=== PATIENT | male | born 1945 | race Caucasian/White ===

== ENCOUNTER 2021-01-09 16:27 | Emergency (ER) | payer SELFPAY ==
[2021-01-09 16:29] VITALS: BP 149/85; PULSE 68; RESP 18; TEMP 36.9; O2SAT 97; BMI 25.1
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
[2021-01-09 16:42] VITALS: PULSE 68; O2SAT 97
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
[2021-01-09 17:17] LABS: Basophils # 0.1 10^3/uL (0.0-0.1); Basophils % 0.5 %; Eosinophils # 0.2 10^3/uL (0.0-0.8); Eosinophils % 1.8 %; Hematocrit 37.7 % (42.0-52.0); Hemoglobin 12.8 g/dL (11.7-16.6); Lymphocytes # 1.7 10^3/uL (0.8-4.8); Lymphocytes % 13.7 %; Mean Corpuscular Hemoglobin 32.2 pg (28.0-34.0); Mean Platelet Volume 10.4 fL (7.4-10.4); Monocytes # 1.1 10^3/uL (0.2-0.9); Monocytes % 8.4 %; Neutrophils # 9.35 10^3/uL (1.8-7.7); Neutrophils % 74.5 %; Nucleated Red Blood Cells % 0 %; Platelet Count 164 10^3/cmm (130-400); Red Blood Count 3.97 10^6/uL (4.1-5.3); Red Cell Distribution Width 13.3 % (12.1-15.1); White Blood Count 12.6 10^3/uL (4.0-10.0)
[2021-01-09 17:44] LABS: Alanine Aminotransferase 9 U/L (0-41); Albumin Level 3.6 g/dL (3.5-5.2); Alkaline Phosphatase 58 IU/L (40-130); Anion Gap 11.6 (5-19); Aspartate Amino Transferase 18 U/L (0-40); Blood Urea Nitrogen 13 mg/dL (8-23); Calcium 8.2 mg/dL (8.5-10.5); Carbon Dioxide 22 mmol/L (22-29); Chloride 107 mmol/L (98-107); Creatinine Clr Calc Pharmacy 85.2207; Globulin 2.4 g/dL (1.3-4.6); Glucose 79 mg/dL (65-115); Osmolality Calculated 283 mOsm/kg (285-295); Potassium 3.6 mmol/L (3.5-5.1); Sodium 137 mmol/L (136-145); Total Bilirubin 0.6 mg/dL (0.15-1.2)
[2021-01-09 18:06] VITALS: BP 178/90; PULSE 76; RESP 16; O2SAT 98
[2021-01-09 18:32] VITALS: RESP 16
[2021-01-09] MEDS: ondansetron 2 mg/ML SDV 2 mL 4 MG IVP (18:32)
[2021-01-09] MEDS: morphine 4 mg/mL SDV 1 mL IVP (18:32)
[2021-01-09 18:49] VITALS: BP 151/86; PULSE 62; RESP 16; O2SAT 98
== END 2021-01-09 18:59 | disposition home or self-care (01) ==
PROVIDERS: Family Medicine; Emergency Provider Emergency Medicine
DX: Z04.1 Encounter for examination and observation following transport accident (principal); V89.2XXA Person injured in unspecified motor-vehicle accident, traffic, initial encounter
CPT/HCPCS: 70450; 71045; 72125; 72128; 74176; 80053; 85025; 96374; 96375; 99283; J2270; J2405

== ENCOUNTER 2021-01-22 14:00 | Emergency (ER) | payer SELFPAY ==
[2021-01-22 14:20] VITALS: BMI 25.1
[2021-01-22 14:24] VITALS: BP 128/87; PULSE 95; RESP 16; TEMP 36.4; O2SAT 97
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
== END 2021-01-22 17:53 | disposition home or self-care (01) ==
PROVIDERS: Emergency Provider Nurse Practitioner Family
DX: S22.080A Wedge compression fracture of T11-T12 vertebra, initial encounter for closed fracture (principal); X58.XXXA Exposure to other specified factors, initial encounter; I71.2 Thoracic aortic aneurysm, without rupture
CPT/HCPCS: 72100; 72128; 72131; 99282

== ENCOUNTER → 2021-03-07 11:04 | Outpatient (BNVA) | payer OTHER, SELFPAY | PROVIDERS: Referring Provider Internal Medicine; Visit Provider Orthopaedic Surgery | DX: S22.080A Wedge compression fracture of T11-T12 vertebra, initial encounter for closed fracture (principal); I71.2 Thoracic aortic aneurysm, without rupture; X58.XXXA Exposure to other specified factors, initial encounter | CPT/HCPCS: 72070 ==

== ENCOUNTER 2021-04-03 11:07 | Outpatient (CLI) | payer OTHER, SELFPAY ==
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
--- NOTE | 2021-04-03 13:45 | MR_ITS ---
WS: [id number] MRI CERVICAL SPINE NONCONTRAST TECHNIQUE: Sagittal T1, T2 and STIR imaging. Axial T2, gradient, and fiesta imaging. CLINICAL INFORMATION: M54.2 - Cervicalgia COMPARISON: CT cervical January 09, 2021 FINDINGS: Straightening of the normal cervical lordosis. Moderate spondylitic changes. Cord signal is normal. No high-grade central canal narrowing. C2-C3: Mild left greater than right bony foraminal narrowing. Mild facet arthropathy. C3-C4: Disc osteophyte complex with endplate ridging. Moderate to severe left foraminal narrowing. Mi ld right foraminal narrowing. Mild facet arthropathy. C4-C5: Disc osteophyte complex with endplate ridging. Tiny shallow central protrusion. Slight contact of the cervical cord. Severe left bony foraminal narrowing. Advanced left facet arthropathy. Right f oramen is patent. C5-C6: Disc osteophyte complex with endplate ridging. Mild to moderate and mild right bony foraminal narrowing. Moderate to advanced facet arthropathy asymmetric to the left. C6-C7: Shallow central protrusion C6-7 with mild central canal stenosis and slight contact of the cer vical cord. Severe left foraminal narrowing. Mild right foraminal narrowing. Impingement on the exiti ng left C7 nerve root. C7-T1: Mild disc bulging with osteophytic ridging. Mild left greater than right bony foraminal narrow ing. Spinal canal is patent. Mild bilateral foraminal narrowing T1-T2. Visualized brain stem structures: Normal. Prevertebral soft tissues: Normal. MR/MR cervical spin wo con* [id number] IMPRESSION: 1. Straightening of the normal cervical lordosis. Moderate spondylitic changes . 2. Shallow central protrusion C6-7 with slight contact of the cervical cord an d mild central canal stenosis. 3. Moderate to severe bony foraminal narrowing at left C3-C4, left C4-5, and l eft C6-C7. Impingement on the exiting left C7 nerve root. 4. Mild to moderate left C5-C6 foraminal narrowing. 5. Moderate to advanced facet arthropathy left C3-C4, left C4-C5, and left C5- C6.
== END 2021-04-03 11:08 | disposition home or self-care (01) ==
LOC: RADSHAW 11:10
PROVIDERS: Visit Provider Orthopaedic Surgery
DX: M50.223 Other cervical disc displacement at C6-C7 level (principal); M47.812 Spondylosis without myelopathy or radiculopathy, cervical region; M47.816 Spondylosis without myelopathy or radiculopathy, lumbar region; I71.4 Abdominal aortic aneurysm, without rupture; M51.26 Other intervertebral disc displacement, lumbar region; M48.061 Spinal stenosis, lumbar region without neurogenic claudication; M41.86 Other forms of scoliosis, lumbar region; M51.24 Other intervertebral disc displacement, thoracic region
CPT/HCPCS: 72141; 72146; 72148

== ENCOUNTER 2021-05-01 06:00 | Outpatient (RCR) | payer OTHER, SELFPAY | END 2021-05-20 23:59 | disposition home or self-care (01) | LOC: SPT 06:00 | PROVIDERS: PCP Orthopaedic Surgery; Visit Provider Orthopaedic Surgery | DX: S22.089D Unspecified fracture of T11-T12 vertebra, subsequent encounter for fracture with routine healing (principal); X58.XXXD Exposure to other specified factors, subsequent encounter; M54.2 Cervicalgia; M48.061 Spinal stenosis, lumbar region without neurogenic claudication | CPT/HCPCS: 97110; 97161 ==

== ENCOUNTER 2021-05-21 06:00 | Outpatient (RCR) | payer OTHER, SELFPAY | END 2021-06-20 23:59 | disposition home or self-care (01) | LOC: SPT 06:00 | PROVIDERS: PCP Orthopaedic Surgery; Visit Provider Orthopaedic Surgery | DX: S22.089D Unspecified fracture of T11-T12 vertebra, subsequent encounter for fracture with routine healing (principal); X58.XXXD Exposure to other specified factors, subsequent encounter; M54.2 Cervicalgia; M48.061 Spinal stenosis, lumbar region without neurogenic claudication | CPT/HCPCS: 97110 ==

== ENCOUNTER → 2021-06-06 10:57 | Outpatient (BNVA) | payer OTHER, SELFPAY | PROVIDERS: PCP Orthopaedic Surgery; Visit Provider Orthopaedic Surgery | DX: Z09 Encounter for follow-up examination after completed treatment for conditions other than malignant neoplasm (principal); M54.2 Cervicalgia; M41.84 Other forms of scoliosis, thoracic region | CPT/HCPCS: 72050; 72080 ==

== ENCOUNTER 2021-06-21 06:00 | Outpatient (RCR) | payer OTHER, SELFPAY | END 2021-07-04 23:59 | disposition home or self-care (01) | LOC: SPT 06:00 | PROVIDERS: PCP Orthopaedic Surgery; Visit Provider Orthopaedic Surgery | DX: S22.089D Unspecified fracture of T11-T12 vertebra, subsequent encounter for fracture with routine healing (principal); X58.XXXD Exposure to other specified factors, subsequent encounter; M54.2 Cervicalgia; M48.061 Spinal stenosis, lumbar region without neurogenic claudication | CPT/HCPCS: 97110 ==

== ENCOUNTER 2022-01-17 10:23 | Outpatient (CLI) | payer OTHER, SELFPAY ==
--- NOTE | 2022-01-17 | CT_ITS ---
WS: [id number] CT CHEST TECHNIQUE: Noncontrast CT of the chest with coronal and sagittal reformatted images. CLINICAL INFORMATION: YVONNE NODULE COMPARISON: DLP: 711.[address] scans at [facility] use at least one of these dose optimization techniques: automated e xposure control; mA and/or kV adjustment per patient size (includes targeted exams where dose is matc hed to clinical indication); or iterative reconstruction. FINDINGS: Moderate chronic emphysematous changes. No acute pulmonary infiltrates. No focal pneumonia or pleural fluid. Slight subsegmental atelectasis in the lung bases. Small 6 mm hazy subpleural nodule RIGHT up per lobe. A few subcentimeter subpleural nodules in the LEFT lower lobe measuring 4 to 5 mm. LEFT upp er lobe nodule anteriorly measuring 5 mm. Ectatic ascending thoracic aorta measuring 3.8CM with noncalcified lobulated atheromatous plaque in t he aortic arch similar in appearance to the prior examinations. No mediastinal or hilar lymphadenopathy. Coronary calcification. No axillary lymphadenopathy. Adrenal glands are normal. Normal GE junction. No axillary lymphadenopathy. Thoracic scoliosis convex LEFT. Chronic compression of the T12 vertebral body superior endplate appea rs unchanged since the MRI March 2021. Disc space narrowing with vacuum disc phenomenon lower thora cic spine. CT/CT chest wo con [id number] IMPRESSION: 1. A few subcentimeter pulmonary nodules described above the largest measuring 5 to 6 mm subpleural RIGHT upper lobe. Recommend [address] follow-up. 2. Ectatic ascending thoracic aorta measuring 3.8 with noncalcified lobulated atheromatous plaque in the aortic arch similar in appearance to the prior exami nations. 3. Coronary calcification. 4. No mediastinal or hilar lymphadenopathy. No axillary lymphadenopathy. 5. Thoracic curve convex LEFT. Chronic anterior wedging with mild compression superior endplate T12 is unchanged from prior MRI March 2021.
== END 2022-01-17 10:24 | disposition home or self-care (01) ==
LOC: RAD 10:25
PROVIDERS: PCP Internal Medicine; Visit Provider Internal Medicine
DX: R91.1 Solitary pulmonary nodule (principal); R91.8 Other nonspecific abnormal finding of lung field; I25.10 Atherosclerotic heart disease of native coronary artery without angina pectoris
CPT/HCPCS: 71250

== ENCOUNTER 2022-03-10 12:14 | Inpatient (IN) | payer OTHER, SELFPAY ==
[2022-03-10 12:31] VITALS: BP 91/71; PULSE 107; RESP 16; TEMP 36.4; O2SAT 98
[2022-03-10 12:35] VITALS: BP 91/71; PULSE 104; RESP 24; O2SAT 99
--- NOTE | 2022-03-10 12:49 | XACV_ITS ---
Exam Room: [facility] Ht: 175 cm Wt: 77 kg BSA: 1.95 m2 Gender: Male : 1945 Any Known Allergies: No known allergies Exam Priority: Routine Indication(s): - Cardiogenic shock Procedure(s): Procedure Description: Diagnostic procedure Procedure Description: PCI procedure Procedure Description: Coronary IVUS Procedure Description: Drug Eluting Coronary Stent Procedure Description: PTCA Procedure Description: Miscellaneous Procedure Description: ACT Procedure Description: Coronary Angiography Procedure Description: pVAD Diagnostic Cath Status: Emergency Diagnostic Findings * INDICATION:76 year old male with no significant prior cardiac history, presented to the hospital with a 3 to 4 days of on and off chest pain, wrist pain, arm pain. He also complained of abdominal pain. He had multiple syncopal episodes in the last 1 to 2 days. Patient also described nausea and vomiting associated with the pain. In the emergency room he was found to have ischemic EKG however not meeting STEMI criteria. Patient was also found to be cardiogenic shock. Patient was emergently taken to agriculture laborer. . * Left Main: ostial significant 80% stenosis, SAVANNA: 3 flow. * Proximal Right Coronary Artery: subtotal occlusion. Patient has developed left to right collateral blood flow. * Circumflex has no significant disease. * Proximal Left Anterior Descending: critical 95% stenosis, SAVANNA: 3 flow. * Coronary angiography shows right dominance. PCI Status: Emergency PCI Indication: NSTE - ACS Interventional Findings * Procedure detail: * Patient was in cardiogenic shock. On diagnostic imaging, patient was found to have severe * multivessel disease including ostial left main artery: Severe proximal LAD stenosis and subtotal occlusion of RCA with collateral blood supply from left system. We proceeded with Impella assisted high risk PCI of left main and LAD arteries after discussion with CT surgical team. Impella CP was placed. Engagement of arteries with guide catheter was extremely difficult because of dilated and tortuous vessels and off axis takeoff. After attempting to engage left main with several guides, we were able to direct the guidewire into LAD without engagement through XB 3.0 guide with the sideholes. We performed balloon angioplasty of LAD and left main artery with 2.5 x 12 mm semicompliant balloon. This was followed by balloon angioplasty of left main artery with 3.0 x 8 mm semicompliant balloon. With then placed a 3.0 x 18 mm resolute Jagruti drug-eluting stent in LAD. A second stent was placed proximally measuring 3.0 x 15 mm. We then proceeded with PCI of ostial left main with 4.0 x 12 mm resolute Jagruti drug-eluting stent. This was postdilated with 4.5 x 8 mm NC balloon. Same balloon was used to post dilate the proximal part of the LAD stent. At this time final angiogram was performed. It was suboptimal angiogram given nonselective engagement of left main artery and guide with sideholes. We then confirmed appropriate expansion of the stents with IVUS. At this time guidewire and guide catheter were removed. Patient left the Capping Machine Operator in a stable condition. * Left Main: 80% stenosis treated with a AB TREK 2.50X12 RX BALLOON, AB TREK 3.00X08 RX BALLOON, and MDT Ruba JAGRUTI 4.0X12 SANDRA. 0% residual stenosis, SAVANNA: 3 flow. * Proximal Left Anterior Descendin% stenosis treated with a AB TREK 2.50X12 RX BALLOON, MDT R JAGRUTI 3.0X18 SANDRA, RIGOBERTO R JAGRUTI 3.0X15 SANDRA, and MDMiguel BROWN EUPHORA RX 4.19Z23WX BALLOON. 0% residual stenosis, SAVANNA: 3 flow. Conclusions 1. Patient is in cardiogenic shock and has presented with 2. non-ST elevation IN 3. and multivessel CAD. S/p impella assisted successful revascularization of 4. ostial left main and 5. proximal LAD. 6. Left Main was treated with a Balloon, Balloon, and Drug Eluting Stent. 7. Proximal Left Anterior Descending was treated with a Balloon, Drug Eluting Stent, Drug Eluting Stent, and Balloon. Recommendations * Transfer to ICU. We will keep Impella in. * Continue dual antiplatelet therapy for at least 1 year. * Patient's condition is critical and will need close monitoring. If becomes significantly hypotensive, will decision and up titration of pressors.. * Order echocardiogram. Interventional RX Recommendation: PCI w/o planned CABG Diagnostic RX Recommendation: PCI w/o planned CABG Anticoagulation: Heparin Pressures Phase:Rest AO : 84 / 70 ( 78 ) @ 1:30:00 PM 111 / 92 ( 99 ) @ 2:20:00 PM 117 / 109 ( 111 ) @ 2:43:00 PM 119 / 114 ( 116 ) @ 3:00:00 PM 105 / 95 ( 96 ) @ 3:43:00 PM LV : 109 / -8 / 34 @ 2:08:00 PM Clinical Evaluation EBL: 5mL-10mL Procedural Details Procedure Consent Obtained. Admit Source: Emergency department. Pre-Procedure Time Out. Identified patient by full name and date of as verbalized by the patient/guarantor. Does the consent match the physician's order: N/A Emergent; Informed Consent not obtained due to time critical life threat. Accurate & Complete Informed Consent: N/A Emergent; Informed Consent not obtained due to time critical life threat. Inpatient/Outpatient History & Physical on Chart: N/A Emergent; Informed Consent not obtained due to time critical life threat. If H&P is completed, is and addenduem needed: N/A Emergent; Informed Consent not obtained due to time critical life threat; If yes, is the addendum complete: N/A. Visualize and Verify Site with Patient/Guarantor: N/A. Relevant Radiology Images available: N/A Emergent; Informed Consent not obtained due to time critical life threat. The risks, benefits, and alternatives of sedation and/or procedure were discussed by physician. The patient agrees to continue. Current diagnosis: NSTEMI. PERRLA. Strong, equal hand take away man bilaterally. Lungs clear x 5 lobes. IV Site on Arrival: 20 gauge in the right anticubital. IV Fluids: 0.9% NaCl at KVO. 0 mL infused prior to agriculture laborer. Pre Procedural Pulses: bilateral radial was 2+. Pre Procedural Pulses: bilateral dorsalis pedis was 1+. Oxygen started at 2liters/min via nasal canula. right radial was prepped with chloroprep then draped in the usual sterile fashion. right groin was prepped with chloroprep then draped in the usual sterile fashion. Baseline sample Acquired. HR: 109 BPM. Physician notified. Physician arrived. Physician scrubbed in. Immediate Pre-Procedure Time Out. Correct Patient: N/A Emergent; Informed Consent not obtained due to time critical life threat; Correct Procedure: N/A Emergent; Informed Consent not obtained due to time critical life threat; Correct Site: N/A Emergent; Informed Consent not obtained due to time critical life threat; Correct Patient Position: N/A Emergent; Informed Consent not obtained due to time critical life threat; Correct Supplies: N/A Emergent; Informed Consent not obtained due to time critical life threat; Dried Flammable Prep: N/A Emergent; Informed Consent not obtained due to time critical life threat; Blood Products Available: N/A Emergent; Informed Consent not obtained due to time critical life threat;. Procedure started. Lidocaine 1% infiltrated to the right radial. Arterial access obtained. A 5 niuean TIG catheter in over wire. Catheter and wire out. Lidocaine 1% infiltrated to the right groin. An attempt to gain access to the right femoral artery was unsuccessful. Manual pressure was held as needed to stop the bleeding. Difficult access. Arterial access obtained with micropuncture set. Glidewire in. 6 niuean XB 3.5 guide catheter was inserted over the wire. Gluidewire out. Exchange wire in. Exchange wire out. Catheter out over the wire. 6 niuean XB 4 guide catheter was inserted over the wire. Catheter out over wire. 6 niuean JL 5 guide catheter was inserted over the wire. A 6 niuean JL5 catheter in over wire. Multiple views taken of left coronary artery. No labs drawn prior to procedure. Catheter out. A 5 niuean JR4 catheter in over wire. Multiple views taken of right coronary artery. Side port of sheath attached to Heparinized Saline flush at KVO to maintain patency. Catheter out. left groin was prepped with chloroprep then draped in the usual sterile fashion. A TR Band was successful obtaining hemostatsis at the Right Radial artery insertion site. Lidocaine 1% infiltrated to the left groin. Arterial access obtained with micropuncture set. Hand injection performed on left side by physican. Blood drawn and sent to lab. ACT drawn. Results 266 seconds. Therapeutic limits - pre-heparin administration 90-150 seconds and monitoring heparin during a vascular procedure >250 seconds. Lidocaine 1% infiltrated to the left groin. Sheath upsized to a 12 Fr. Sheath upsized to 14Fr. A 6 niuean Angled Pig catheter in over wire. EDP Sample taken: LV 109/-9,34; HR: 119 BPM; SpO2: 100%. Impella wire in in left groin. Pigtail out over impella wire. Impella wire out. Impella CP inserted. Impella adequately postioned across the valve with a flow of 3.5 mL. 6 niuean JR 4 guide catheter was inserted over the wire. Crystal Elder was relieved by CESAR StuartR) as monitoring person. ACT drawn. Results 351 seconds. Therapeutic limits - pre-heparin administration 90-150 seconds and monitoring heparin during a vascular procedure >250 seconds. Runthrough guidewire was advanced through the guide catheter to lesion in the mid RCA. Wire out. Guide catheter out. 6 niuean AL 0.75 SH guide catheter was inserted over the wire. Guide catheter out. 6Fr sheath exchanged for a 45cm 6FR Flexor sheath. 6 niuean AL 0.75 SH guide catheter was inserted over the wire. 6 niuean XB 4 guide catheter was inserted over the wire. Runthrough guidewire was advanced through the guide catheter to lesion in the mid LAD. Wire out. Guide catheter out. 6 niuean XB 3.5 guide catheter was inserted over the wire. Runthrough guidewire was advanced through the guide catheter to lesion in the mid LAD. Patient's family updated. Wire out. Guide catheter out. ACT drawn. Results 363 seconds. Therapeutic limits - pre-heparin administration 90-150 seconds and monitoring heparin during a vascular procedure >250 seconds. 6 niuean JL 5 guide catheter was inserted over the wire. Runthrough guidewire was advanced through the guide catheter to lesion in the mid LAD. Wire out. Guide catheter out. 6 niuean XBLAD 4 guide catheter was inserted over the wire. Runthrough guidewire was advanced through the guide catheter to lesion in the mid LAD. Wire out. A 6 niuean JL5 catheter in over wire. 300cm Runthrough guidewire was advanced through the guide catheter to lesion in the mid LAD. A second 300cm Runthrough guidewire was advanced through the guide catheter to lesion in the diaganol. Unable to obtain a cuff pressure. AO sat on the Impella is 99/92. Catheter removed over the Runthrough wires. 6 niuean JL 5 guide catheter was inserted over the wire. One of the wires out. Guideliner inserted OTW. Impella AO Pressure:106/98. Guideliner and wire out. 6 niuean XB 4.5 guide catheter was inserted over the wire. Guide catheter out. 6 niuean AL II LBT guide catheter was inserted over the wire. Guide catheter out. 6 niuean XB 3 SH guide catheter was inserted over the wire. Impella AO Pressure:107/101. Runthrough guidewire was advanced through the guide catheter to lesion in the mid LAD. Inflation number : 1 A AB TREK 2.50X12 RX BALLOON was prepped and advanced across the Prox LAD , then inflated to 12 REYMUNDO for 0:19 seconds. Inflation number: 2 The AB TREK 2.50X12 RX BALLOON was reinflated across the Prox LAD, to 12 REYMUNDO for 0:21 seconds. Inflation number: 1 The AB TREK 2.50X12 RX BALLOON was reinflated across the LMCA, to 12 REYMUNDO for 0:18 seconds. Balloon out. Impella AO Pressure:102/83. Inflation number : 2 A AB TREK 3.00X08 RX BALLOON was prepped and advanced across the LMCA , then inflated to 8 REYMUNDO for 0:18 seconds. Balloon out. ACT drawn. Results 401 seconds. Therapeutic limits - pre-heparin administration 90-150 seconds and monitoring heparin during a vascular procedure >250 seconds. Inflation Number : 3 A RIGOBERTO R JAGRUTI 3.0X18 SANDRA -Lot Number# _[id number]_ EXP: 02/28/2024 was prepped and advanced across the Prox LAD. The stent was deployed at 12 REYMUNDO for 0:18 seconds. Stent balloon out over wire. Inflation Number : 4 A MDT R JAGRUTI 3.0X15 SANDRA -Lot Number# _[id number]_ EXP: 07/24/2024 was prepped and advanced across the Prox LAD. The stent was deployed at 12 REYMUNDO for 0:20 seconds. Stent balloon out over wire. Inflation Number : 3 A MDT R JAGRUTI 4.0X12 SANDRA -Lot Number# _[id number]_ EXP: 10/02/2023 was prepped and advanced across the LMCA. The stent was deployed at 12 REYMUNDO for 0:19 seconds. Stent balloon out over wire. IVUS catheter inserted OTW. IVUS measurements obtained. IVUS catheter out OTW. Inflation number : 5 A MDT NC EUPHORA RX [id number] BALLOON was prepped and advanced across the Prox LAD , then inflated to 10 REYMUNDO for 0:15 seconds. Balloon out. Results checked. Impella AO Pressure:93/84. Wire out. ACT drawn. Results 364 seconds. Therapeutic limits - pre-heparin administration 90-150 seconds and monitoring heparin during a vascular procedure >250 seconds. Guide catheter out. The long 6Fr Flexor sheath exchanged for a 6Fr short sheath. ACT drawn. Results 374 seconds. Therapeutic limits - pre-heparin administration 90-150 seconds and monitoring heparin during a vascular procedure >250 seconds. Both Sheath(s) sutured into position with 2-0 silk and sterile 4x4's and Op-site applied over the site. No oozing or signs and symptoms of hematoma noted. Arterial sheath flushed and connected to tranducer and pressure bag with heparinized saline. Post Procedure: Pulses reassessed and unchanged. PERRLA. Strong, equal hand take away man bilaterally. No VTE prophylaxis required. A Suture was successful obtaining hemostatsis at the Left Femoral artery insertion site. A Suture was successful obtaining hemostatsis at the Right Femoral artery insertion site. Medication's Wasted: Lidocaine 1% = 1 mL. Medication's Wasted: Heparin = 4000 units. Medication's Wasted: Nitro = 50 mg. Total IV fluids: 540 mL. Medication's Wasted: Other = Versed 0.5 mg. Post-op diagnosis: CAD. Estimated blood loss: 5mL-10mL. Responsiveness - Normal response to verbal stimuli; alert and oriented, PERRLA. Airway - Unaffected, no intervention required; spontaneous ventilation. Circulation: W/N/L, pulses unchanged. Nausea/Vomiting: No. Procedure completed. Femostop placed on the left groin. A 16Fr mcdaniel catheter was inserted without resistance maintaining sterile technique. Bag to gravity with clear urine returning. Patient transferred by bed to ICU. AP Pads placed on patient. Vital chart was stopped. Access Site Site: Right Radial artery Sheath Size: 6 Fr Hemostasis Method: TR Band Hemostasis Success: Successful Site: Right Femoral artery Sheath Size: 6 Fr Hemostasis Method: Suture Hemostasis Success: Successful Site: Left Femoral artery Sheath Size: 6 Fr Hemostasis Method: Suture Hemostasis Success: Successful Procedure Medications Start: 1:03 PM Stop: 1:03 PM Medication: Versed 1 mg and Fentanyl 25 mcg Amount: 1 Route: I.V. Start: 1:12 PM Stop: 1:12 PM Medication: Versed Amount: 1 mg Route: I.V. Start: 1:23 PM Stop: 1:23 PM Medication: Fentanyl Amount: 25 mcg Route: I.V. Start: 1:26 PM Stop: 1:26 PM Medication: Versed Amount: 1 mg Route: I.V. Start: 1:37 PM Stop: 1:37 PM Medication: Heparin Amount: 4000 units Route: I.V. Start: 1:43 PM Stop: 1:43 PM Medication: 0.9% Saline Amount: 200 ml/hr Route: I.V. drip Start: 2:10 PM Stop: 2:10 PM Medication: Heparin Amount: 3000 units Route: I.V. Start: 2:42 PM Stop: 2:42 PM Medication: Heparin Amount: 2000 units Route: I.V. Start: 2:47 PM Stop: 2:47 PM Medication: Versed Amount: 1 mg Route: I.V. Start: 3:03 PM Stop: 3:03 PM Medication: Heparin Amount: 1000 units Route: I.V. Start: 3:15 PM Stop: 3:15 PM Medication: Versed Amount: 1 mg Route: I.V. Start: 3:25 PM Stop: 3:25 PM Medication: Fentanyl Amount: 25 mcg Route: I.V. Start: 3:26 PM Stop: 3:26 PM Medication: Heparin Amount: 2000 units Route: I.V. Start: 3:43 PM Stop: 3:43 PM Medication: Versed 1 mg and Fentanyl 25 mcg Amount: 1 Route: I.V. Start: 4:20 PM Stop: 4:20 PM Medication: Versed Amount: 0.5 mg Route: I.V. Start: 4:39 PM Stop: 4:39 PM Medication: Lasix (furosemide) Amount: 40 mg Route: I.V. I, the attending physician, have reviewed and verified all procedure medications. Yes, all medications given per verbal order History/Risk Factors Hypertension: No Dyslipidemia: No Peripheral Arterial Disease (PAD): No Myocardial Infarction (IN): No Obesity: No Renal Disease: No Prior Interventions PCI: No CABG: No Valve Surgery: No Report Signatures Finalized by Shailesh White MD on 03/22/2022 02:17 PM
[2022-03-10 12:50] VITALS: BP 86/61; PULSE 103; RESP 23; O2SAT 94
--- NOTE | 2022-03-10 12:54 | ED_ITS ---
HPI - Chest Pain General: Chief Complaint: Chest Pain Stated Complaint: chest pain Time Seen by Provider: 03/10/22 12:30 History of Present Illness: Patient comes in with abdominal pain and chest pain for the past 3 days. States that it started as a sharp pain in his abdomen and progressed into his chest. Describes it as constant, associated with nausea and vomiting. Denies fever, diarrhea, cough, congestion, or other sick symptoms. States that he does have a history of high cholesterol and hypertension but has not been able to take his medications due to the vomiting the last few days. Stat EKG is concerning for an acute DC. Associated symptoms: Reports abdominal pain, nausea and vomiting; Deny dyspnea, fever(s) or palpitations Review of Systems Const: Denies: fever(s) or body aches Eyes: Denies: change in vision or blurry vision ENMT: Denies: throat pain or odynophagia Card: Reports: chest pain; Denies: palpitations Resp: Denies: dyspnea or productive cough GI: Reports: abdominal pain, nausea and vomiting : Denies: flank pain or dysuria Musc: Denies: neck pain or back pain Skin/Breast: Denies: rash or pruritus Neuro: Denies: headache(s) or numbness in extremities Psych: Denies: anxiety or change in appetite Endo: Denies: polyuria or excessive sweating PFSH ED PFSH: Social History Smoking and tobacco status: former smoker Physical Exam Const: COMMON NORMALS: no acute distress, patient oriented x3, healthy appearing and alert HENMT: COMMON NORMALS: normocephalic and atraumatic HEAD & SCALP: normocephalic and atraumatic Eye: COMMON NORMALS: Equal, round and reactive pupils present and EOMs intact bilaterally PUPIL: Yes Equal, round and reactive pupils present Neck/C-Spine: COMMON NORMALS: full ROM and supple Resp: COMMON NORMALS: normal respiratory effort, No retractions and No use of accessory muscles Cardio: COMMON NORMALS: regular rate and regular rhythm RATE: regular rate RHYTHM: regular rhythm GI: COMMON NORMALS: Normal to inspection, nondistended, normoactive bowel sounds present, Soft to palpation and non-tender PALPATION: Yes Soft to pa lpation Back/Pelvis: COMMON NORMALS: thoracic and lumbar spine normal to inspection and no thoracic nor lumbar tenderness Extremity: COMMON NORMALS: normal to inspection and full ROM Neuro: COMMON NORMALS: patient oriented x3 SENSORIUM/ORIENTATION: Yes alert Psych: COMMON NORMALS: mental status grossly normal and cooperative Skin: COMMON NORMALS: no rashes or lesions noted and no wounds GENERAL SKIN EXAM: no rashes or lesions noted Course Vital Signs: Vital signs: Vital Signs Temperature 97.5 F L 03/10/22 12:31 Pulse Rate 107 H 03/10/22 12:31 Respiratory Rate 16 03/10/22 12:31 Blood Pressure 91/71 03/10/22 12:31 Pulse Oximetry 98 03/10/22 12:31 MDM - Chest Pain Medical Decision Making Patient comes in with abdominal pain and chest pain for the past 3 days. States that it started as a sharp pain in his abdomen and progressed into his chest. Describes it as constant, associated with nausea and vomiting. Denies fever, diarrhea, cough, congestion, or other sick symptoms. States that he does have a history of high cholesterol and hypertension but has not been able to take his medications due to the vomiting the last few days. Stat EKG is concerning for an acute DC. Physical exam is unremarkable. We have activated the STEMI team, will give 600 mg of Plavix, 4000 unit bolus of heparin, 325 of aspirin, IV fluids secondary to slightly low blood pressure, and admit to the Covering Machine Operator Helper for further work-up and treatment of his STEMI. Discharge Plan Discharge Patient Disposition: Placed in Observation Clinical Impression: ST elevation (STEMI) myocardial infarction Coding Level of Care Code ED Roll Coating Machine Operator for Celeste Sparks Exam Comprehensive
[2022-03-10] MEDS: heparin 5,000 unit/mL INJ 1 mL 4000 UNIT IVP (12:55)
--- NOTE | 2022-03-10 12:56 | ECG_ITS ---
Test Date: 2022-03-10 Pat Name: Keith Mcgee Department: Room: Gender: Male Legislative Correspondent: : 1945 Requested By: Augustin Hodge Order Number: [id number] Kingsley MD: Shailesh White M.D. Measurements Intervals [place] Rate: 109 P: 41 HI: 156 QRS: 105 QRSD: 100 T: -83 QT: 329 QTc: 443 Interpretive Statements SINUS TACHYCARDIA LOW QRS VOLTAGE IN PRECORDIAL LEADS [QRS DEFLECTION < 1.0 mV IN CHEST LEADS] ANTEROLATERAL MYOCARDIAL INFARCTION ,AGE INDETERMINATE[40+ ms Q WAVE IN I/aVL/V3-V6] No previous ECG available for comparison Electronically Signed On 03-10-2022 19:47:47 FISHERY BIOLOGIST by Shailesh White M.D. [id number]
[2022-03-10] MEDS: ondansetron 2 mg/ML SDV 2 mL 4 MG IVP (12:57)
[2022-03-10] MEDS: aspirin 81 mg Chew Tablet 324 MG PO (12:57)
[2022-03-10] MEDS: clopidogrel 300 mg Tablet 600 MG PO (12:57)
[2022-03-10] MEDS: sodium chloride 0.9% 1,000 ML 999 ML IV (12:58)
[2022-03-10 14:09] LABS: Basophils # 0.1 10^3/uL (0.0-0.1); Basophils % 0.3 %; Hemoglobin 13.1 g/dL (11.7-16.6); Lymphocytes % 7.4 %; Mean Corpuscular HGB Conc 34.5 g/dL (30.0-36.0); Mean Corpuscular Hemoglobin 33.2 pg (28.0-34.0); Mean Corpuscular Volume 96.4 fl (80-94); Monocytes # 2.8 10^3/uL (0.2-0.9); Monocytes % 10.2 %; Neutrophils # 22.03 10^3/uL (1.8-7.7); Nucleated Red Blood Cells # 0.1 /100WBC; Nucleated Red Blood Cells % 0.4 %; Platelet Count 166 10^3/cmm (130-400); Red Blood Count 3.94 10^6/uL (4.1-5.3); Red Cell Distribution Width 14.3 % (12.1-15.1); White Blood Count 27.2 10^3/uL (4.0-10.0)
[2022-03-10 14:21] LABS: Anion Gap 17.8 (5-19); Blood Urea Nitrogen 35 mg/dL (8-23); Carbon Dioxide 21 mmol/L (22-29); Chloride 100 mmol/L (98-107); Glucose 135 mg/dL (65-115); Osmolality Calculated 290 mOsm/kg (285-295); Potassium 3.8 mmol/L (3.5-5.1); Sodium 135 mmol/L (136-145)
[2022-03-10 14:22] LABS: Creatinine Clr Calc Pharmacy 51.6608
--- NOTE | 2022-03-10 16:46 | PM.HP ---
Providers/Chief Complaint Admitting Physician: Shailesh White M.D Primary Care Provider: Megan Kaminski MD Chief Complaint: chest pain History of Present Illness Keith Mcgee is a 76 year old male with no significant prior cardiac history, presented to the hospital with a 3 to 4 days of on and off chest pain, wrist pain, arm pain. He also complained of abdominal pain. He had multiple syncopal episodes in the last 1 to 2 days. Patient also described nausea and vomiting associated with the pain. In the emergency room he was found to have ischemic EKG with ST depressions and borderline ST elevation in lateral leads. Review of Systems Const: Denies: fever(s) or body aches Eyes: Denies: change in vision or blurry vision ENMT: Denies: throat pain or odynophagia Card: Reports: chest pain; Denies: palpitations Resp: Denies: dyspnea or productive cough GI: Reports: abdominal pain, nausea and vomiting : Denies: flank pain or dysuria Musc: Denies: neck pain or back pain Skin/Breast: Denies: rash or pruritus Neuro: Denies: headache(s) or numbness in extremities Psych: Denies: anxiety or change in appetite Endo: Denies: polyuria or excessive sweating Medications/Allergies Home Medications Medication Instructions Recorded Confirmed Last Taken Type methocarbamol 750 mg tablet 750 mg PO Q6H PRN spasms #20 tabs 01/09/21 06/06/21 Unknown Rx celecoxib 100 mg capsule (Celebrex) 100 mg PO BID #20 caps 01/22/21 06/06/21 Unknown Rx Allergies Allergy/AdvReac Type Severity Reaction Status Date / Time No Known Allergies Allergy Verified 04/23/21 13:14 PFSH Acute PFSH: Social History Smoking and tobacco status: former smoker Vitals/I&O/Wt Last Vital Signs Temp 97.5 F L 03/10/22 12:31 Pulse 103 H 03/10/22 12:50 Resp 23 H 03/10/22 12:50 BP 86/61 03/10/22 12:50 Pulse Ox 94 03/10/22 12:50 O2 Del Method 03/10/22 12:50 Weight last 48 hrs Weight 170 lb Physical Exam Narrative: GENERAL: Patient is alert, awake and oriented x3. [] NECK: No jugular vein distension. [] HEENT: No cyanosis. No icterus. No pallor. [] HEART: Regular S1 and S2. No murmur, rub or gallop. [] LUNGS: Mild crackles. Decreased breath sounds ABDOMEN: Soft CENTRAL NERVOUS SYSTEM: Grossly nonfocal. [] EXTREMITIES: Lower extremities with no edema. Difficult to palpate pulses Data 03/10/22 12:30 03/10/22 12:30 A&P Assessment and plan (1) Cardiogenic shock: (2) NSTEMI (non-ST elevated myocardial infarction): Plan Patient presented with multiple symptoms going on for last 3 to 4 days. Had multiple syncopal episodes as well. EKG is ischemic. Not meeting STEMI criteria. in the emergency room he was found to be in cardiogenic shock with tachycardia and hypotension. Septic shock in addition cannot be ruled out labs are performed. After discussion with patient and family we have decided to take him to cardiac Oceanographer Physical for emergent coronary angiogram with possible percutaneous coronary intervention. Risks and benefits of the procedure been discussed with the patient and the family. They understand the risks and benefits and want to proceed with the procedure. We will order echocardiogram Patient given aspirin, plavix and heparin bolus. Attestations Medical Necessity Statement*: Care expected to cross 2 midnights. Patient has presented with cardiogenic shock and CA. Emergent activation of cardiac Oceanographer Physical. He will need post procedure ICU care. Coding Level of Care Code Acute Manager Hospitality for Celeste Sparks Diagnoses Cardiogenic shock R57.0 NSTEMI (non-ST elevated myocardial infarction) I21.4
[2022-03-10 17:29] LABS: ABG PH Result 7.42 (7.35-7.45); Alveolar-Arterial Oxygen Gradi 15.9 mmHg (5-10); Arterial Blood Gas Hematocrit 35.9 % (42-52); Base Excess ABG -7.1 mmol/L (-2.0-2.0); Blood Gas Operator Identificat CAK; Blood Gas Sample Site Femoral, right; Blood Gas Sample Type Arterial; Carboxyhemoglobin 1.5 %THgb (0.4-20.1); HCO3 ABG 15.7 mmol/L (22-26); HGB O2 Sat 94.1 % (95-100); Methemoglobin 0.6 % (0.4-1.5); Oxygen Device NC; Oxygen Saturation ABG 96.1; PO2 ABG 75.8 mmHg (80.0-100.0); Potassium Level - ABG 3.6 mmol/L (3.5-5.0); Total Hemoglobin 11.7 g/dL (14-18)
--- NOTE | 2022-03-10 17:42 | P.CONIM_ITS ---
Providers/Reason For Consult Attending Physician: Shailesh White M.D Primary Care Provider: Megan Kaminski MD History of Present Illness History of Present Illness Keith Mcgee is a 76 year old male Medications/Allergies Home Medications Medication Instructions Recorded Confirmed Last Taken Type methocarbamol 750 mg tablet 750 mg PO Q6H PRN spasms #20 tabs 01/09/21 06/06/21 Unknown Rx celecoxib 100 mg capsule (Celebrex) 100 mg PO BID #20 caps 01/22/21 06/06/21 Unknown Rx Allergies Allergy/AdvReac Type Severity Reaction Status Date / Time No Known Allergies Allergy Verified 04/23/21 13:14 PFSH Acute PFSH: Social History Smoking and tobacco status: former smoker Vitals/I&O/Wt Last Vital Signs Temp 97.5 F L 03/10/22 12:31 Pulse 103 H 03/10/22 12:50 Resp 23 H 03/10/22 12:50 BP 86/61 03/10/22 12:50 Pulse Ox 94 03/10/22 12:50 O2 Del Method 03/10/22 12:50 Weight last 48 hrs Weight 77.111 kg Data 03/10/22 12:30 03/10/22 12:30 Coding Level of Care Code Acute Answering Service Telephone Operator for [facility]
--- NOTE | 2022-03-10 18:05 | USCV_ITS ---
Keith Mcgee Age: 76 Gender: M : 1945 Exam Date: 03/10/2022 18:11 Ordering Phys: Shailesh White M.D ([email or web address]) Technologist: CORI Exam Location: [facility] [place] Indication: Limited study in ICU-12 during CODE BLUE following cardiac cath. Images are under [id number].NAME. BP: / HR: Rhythm: Sinus Technical Quality: Adequate MEASUREMENTS (Male / Female) Normal Values FINDINGS Left Ventricle Right Ventricle Right Atrium Left Atrium Mitral Valve Aortic Valve Tricuspid Valve Pulmonic Valve Pericardium Aorta IVC CONCLUSIONS This is a limited quality echocardiogram performed to assess LV function and Impella position. Impella was repositioned under ultrasound guidance. Grossly LV systolic function is severely reduced. RV is dilated and function is severely reduced. No comparison studies are available Shailesh White MD (Electronically Signed) Final Date: 11 March 2022 11:11 S
[2022-03-10 19:02] LABS: ABG PCO2 20.5 mmHg (35-45); ABG PH Result 7.23 (7.35-7.45); Alveolar-Arterial Oxygen Gradi 65.3 mmHg (5-10); Arterial Blood Gas Hematocrit 33.3 % (42-52); Base Excess ABG -17.1 mmol/L (-2.0-2.0); Blood Gas Allen Test Pos; Blood Gas Operator Identificat glc; Blood Gas Sample Site aline; Blood Gas Sample Type Arterial; HCO3 ABG 8.5 mmol/L (22-26); Ionized Calcium Level - ABG 0.9 mmol/L (1.1-1.4); Methemoglobin 0.7 % (0.4-1.5); Oxygen Device AMBU; Oxygen Saturation ABG 99.8; Potassium Level - ABG 4.1 mmol/L (3.5-5.0); Total Hemoglobin 10.9 g/dL (14-18)
--- NOTE | 2022-03-10 19:11 | P.MISC_ITS ---
Miscellaneous Note Purpose of Documentation: Brief procedure note/ Event note Note: Patient has severe multivessel coronary artery disease with severe stenosis of ostial proximal left main artery, critical proximal LAD stenosis, subtotal occlusion of ostial to proximal RCA with collaterals from left system. Given his cardiogenic shock, I discussed the case with Dr. Russ, CT surgeon at [facility] in [place]. He considered patient to be very high risk for transfer and urgent CABG. Decision was made to perform Impella supported high risk PCI of left main and LAD. Performed successful PCI of left main artery and proximal to mid LAD. RCA could not be revascularized. However it had collateral blood supply already developed. At end of procedure, had a detailed discussion with patient's . She decided to keep patient full code.. Discussed with patient's likely poor prognosis given late presentation of RI and cardiogenic shock. She understood that. In the ICU patient started becoming more uncomfortable and agitated. Lifted his leg up and with that had significant bleeding at the Impella site. He went into PEA and had CPR x2. Echocardiogram showed severely reduced LV systolic function and severe RV dilation and hypokinesis. I called patient's and she dated multiple times. After prolonged CPR, she decided to stop further attempts at CPR.
--- NOTE | 2022-03-10 19:20 | PM.DDS ---
Discharge Providers DDS Date of Admission: 03/10/22 15:59 Date Summary Completed: 03/23/22 Attending Provider at Admission: Shailesh White M.D Time of : 18:58 Attending Provider at Discharge: Shailesh White M.D Primary Care Provider: Megan Kaminski MD Diagnoses Probable Cause of Cardiogenic shock Hospital Diagnoses (1) Cardiogenic shock: (2) NSTEMI (non-ST elevated myocardial infarction): Reason for Visit Reason for Visit Chest pain Brief History: 76 year old male with no significant prior cardiac history, presented to the hospital with a 3 to 4 days of on and off chest pain, wrist pain, arm pain.? He also complained of abdominal pain.? He had multiple syncopal episodes in the last 1 to 2 days.? Patient also described nausea and vomiting associated with the pain.? In the emergency room he was found to have ischemic EKG with ST depressions and borderline ST elevation in lateral leads. Summary Date and Time of Date of : 03/10/22 Time of : 18:58 Summary Summary: Patient was found to have severe multivessel coronary artery disease with severe stenosis of ostial proximal left main artery, critical proximal LAD stenosis, subtotal occlusion of ostial to proximal RCA with collaterals from left system.? Given his cardiogenic shock, I discussed the case with Dr. Russ, CT surgeon at [facility] [place]. He considered patient to be very high risk for transfer and urgent CABG.? Decision was made to perform Impella supported high risk PCI of left main and LAD. We performed successful impella assisted PCI of left main artery and proximal to mid LAD.? RCA could not be revascularized.? However it had already developed collateral blood supply. At end of procedure, we had a detailed discussion with patient's .? She decided to keep patient full code..? Discussed with patient's likely poor prognosis given late presentation of CT and cardiogenic shock.? She understood that. In the ICU patient started becoming more uncomfortable and agitated.? Lifted his leg up and with that had significant bleeding at the Impella site.? He went into PEA and had CPR x2. Echocardiogram showed severely reduced LV systolic function and severe RV dilation and hypokinesis. I called patient's and she dated multiple times.? After prolonged CPR, she decided to stop further attempts at CPR.Patient at 1858. Additional Data Confirmation of as documented by pronouncing clinician: no pulse, no respirations, no heart sounds and pupils fixed and dilated Family: contacted Was code activated?: Yes Autopsy requested?: No Advance directives?: No Hospice patient?: No Discharge Plan Discharge Patient Disposition: At Medical Facility Condition: Stable Prescriptions: No Action methocarbamol 750 mg tablet 750 mg PO Q6H PRN (Reason: spasms) Qty: 20 0RF Celebrex 100 mg capsule 100 mg PO BID Qty: 20 0RF Probable Cause of Probable cause of : Cardiac arrest DS Attestations Time Spent in /Discharge Care*: greater than 30 min Quality - AMI: AMI present?: Yes Quality - Stroke: CVA present?: No Quality - VTE: VTE present?: No Coding Level of Care Code Acute Civil Estimator for Celeste Sparks Diagnoses Cardiogenic shock R57.0 NSTEMI (non-ST elevated myocardial infarction) I21.4
--- NOTE | 2022-03-10 19:35 | PC.NURSE ---
Pt was noted to have copious amounts of blood pooled in mynor area. Pressure was being applied to left groin femstop. Dr. White called and at bedside. See code sheet for details.
--- NOTE | 2022-03-10 19:46 | PC.NURSE ---
called and gave verbal permission [facility] [place].
--- NOTE | 2022-03-10 23:02 | PC.NURSE ---
MTS notified of patient's . Information given to Giovanni @[facility]. Later notified patient is a candidate for tissue donation. [facility] will notify if family approves. Post mortem care provided and body has been transferred off unit by Csw.
--- NOTE | 2022-03-11 07:57 | P.PNCC_ITS ---
Critical Care Event Note The high probability of a clinically significant, sudden or life threatening deterioration of the patient's [already vascular respiratory] system(s) required my full and direct attention, intervention and personal management. The critical care time is as shown. This time is in addition to time spent performing any reported procedures but includes the following: [x] Data and vital sign review and interpretation [x] Patient assessment, examination and intervention [x] Documentation [x] Medication orders and management Critical Care Time Code activated: Yes Critical Care Time (min): 35 Additional information about critical care time: Was called by ICU staff to assist with critical patient. On my arrival Derry scan was being placed they were requesting intubation patient had agonal respirations. While we are preparing to intubate patient went into cardiac arrest. CPR was started. Patient was intubated. Initially Dr. Steward was present he requested that I continue to manage the code while he contacted family. Code was managed to the code flowsheet we were able to establish ROSC. Patient went into cardiac arrest a second time code reinitiated ROSC ree stablished. Care of the patient turned over to Dr. Steward who is at the bedside. Procedures Intubation Time out performed: No Sedative: other (Propofol) Paralytic: succinylcholine Laryngoscope: Sharif ET tube size: 8 Tube secured depth (cm): 23 Tube secured location: teeth Tube placement confirmation: visualized tube passing through cords, equal breath sounds bilaterally, no breath sounds over epigastrium and confirmation by capnometry Additional comments: Patient went into cardiac arrest intubation was done shortly after intubation patient was biting down on the tube a bite block was not in place. Patient given succinylcholine and propofol to help maintain tube. Versed and fentanyl drips were ordered. While I was present to the had not been initiated due to patient's condition. Coding Level of Care Code Acute Motor Equipment Sergeant for Celeste Sparks
== END 2022-03-10 23:30 | disposition expired | DRG 215 ==
LOC: ER 15:27 → ICU 16:00
PROVIDERS: Admitting Provider Internal Medicine; Emergency Provider Emergency Medicine; PCP Internal Medicine; Visit Provider Internal Medicine
PROC: 02HA3RZ Insertion of Short-term External Heart Assist System into Heart, Percutaneous Approach (ICD-10-PCS; principal; 2022-03-10 13:00)
PROC: 02HA3RZ Insertion of Short-term External Heart Assist System into Heart, Percutaneous Approach (ICD-10-PCS; 2022-03-10 13:00)
DX: I21.4 Non-ST elevation (NSTEMI) myocardial infarction (principal); I50.20 Unspecified systolic (congestive) heart failure; R57.0 Cardiogenic shock; I25.10 Atherosclerotic heart disease of native coronary artery without angina pectoris; Z87.891 Personal history of nicotine dependence; R45.1 Restlessness and agitation; I46.9 Cardiac arrest, cause unspecified
CPT/HCPCS: 31500; 33975; 80048; 80051; 82330; 82805; 83605; 85025; 85347; 86900; 86920; 92978; 93005; 93308; 93458; 96361; 96365; 99152; 99153; 99285; C1725; C1753; C1769; C1874; C1887; C1894; C9600; J0461; J1644; J1940; J2250; J2405; J3010; J3490; J7030; J7060; P9016; Q9967